=== PATIENT | female | born 1960 | race Caucasian/White ===

== ENCOUNTER 2019-04-20 14:53 | Emergency (ER) | payer OTHER ==
[2019-04-20] MEDS ORDERED: Sodium Chloride 0.9% 500 ML IV ONE (15:00)
--- NOTE | 2019-04-20 15:06 | EDM.PDOC ---
ED HPI GENERAL MEDICAL PROBLEM - General Chief Complaint: Chest Pain Stated Complaint: CHEST PAIN Time Seen by Provider: 04/20/19 14:53 Source of Information: Reports: Patient History Limitations: Reports: No Limitations - History of Present Illness INITIAL COMMENTS - FREE TEXT/NARRATIVE: 58 y.o.w.f came to the ED, transferred from , due to a possible fainting spell while taking a shower. Pt had breakfast before the shower. Pt stated, she had 4 fainting spells, after which she decided to come to the ED. Pt did not pass out. She has a H/O A fib, takes Metoprolol. ECG at the showed a NSR with T wave inversions at her ant leads, no change from 11/08/2018. No N/V/D no CP. No other acute med issues. BP 154/74 RR 18 Pulse ox 100% on RA Pulse 59 Temp 56.7 Onset Date: 04/20/19 Onset Time: 07:00 Duration: Intermittent Location: Reports: Chest Quality: Reports: Other (Fainting) Severity: Mild Improves with: Reports: Rest Worsens with: Reports: Movement Context: Reports: Other (taking a shower) Associated Symptoms: Reports: No Other Symptoms Chest Pain Score (Numeric/FACES): 2 - Related Data Allergies Allergy/AdvReac Type Severity Reaction Status Date / Time amoxicillin [Amoxicillin] Allergy Hives Verified 04/20/19 14:55 Home Meds: Home Meds Calcium Carbonate [Calcium] 600 mg PO DAILY 03/04/14 [History] Cholecalciferol (Vitamin D3) [Vitamin D] 1,000 unit PO DAILY 03/04/14 [History] Cyanocobalamin (Vitamin B12) [Vitamin B13] 500 mcg PO DAILY 03/04/14 [History] Flaxseed/Omega3,6,9/Fatty Acid [Flax Seed Oil 1,300 mg Softgel] 1 each PO DAILY 03/04/14 [History] Hydrocodone/Acetaminophen [Vicodin 5-300 mg Tablet] 1 - 2 tab PO Q6HR PRN #20 tablet 03/04/14 [Rx] Levothyroxine Sodium 1 tab PO DAILY 03/04/14 [History] Magnesium Amino Acid Chelate [Magnesium] 100 mg PO DAILY 03/04/14 [History] Multivitamin [One Daily Multivitamin] 1 each PO DAILY 03/04/14 [History] [place]-3 Fatty Acids/Fish Oil [Fish Oil Softgel] 1 each PO DAILY 03/04/14 [ History] Venlafaxine HCl [Venlafaxine ER] 1 tab PO DAILY 03/04/14 [History] ED ROS GENERAL - Review of Systems Review Of Systems: See Below Constitutional: Reports: No Symptoms HEENT: Reports: No Symptoms Respiratory: Reports: No Symptoms Cardiovascular: Reports: Lightheadedness, Syncope (near syncopy) Endocrine: Reports: No Symptoms GI/Abdominal: Reports: No Symptoms : Reports: No Symptoms Musculoskeletal: Reports: No Symptoms Skin: Reports: No Symptoms Neurological: Reports: No Symptoms Psychiatric: Reports: No Symptoms Hematologic/Lymphatic: Reports: No Symptoms Immunologic: Reports: No Symptoms ED EXAM, GENERAL - Physical Exam Exam: See Below Exam Limited By: No Limitations General Appearance: Alert, WD/WN, Mild Distress Eye Exam: Bilateral Eye: Normal Inspection Ears: Normal External Exam, Normal Canal Ear Exam: Bilateral Ear: Auricle Normal Nose: Normal Inspection, Normal Mucosa, No Blood Throat/Mouth: Normal Inspection, Normal Lips, Normal Voice, No Airway Compromise Head: Atraumatic, Normocephalic Neck: Normal Inspection, Supple, Non-Tender, Full Range of Motion Respiratory/Chest: No Respiratory Distress, Lungs Clear, Normal Breath Sounds, Chest Non-Tender Cardiovascular: Normal Peripheral Pulses, Regular Rate, Rhythm, No Edema, No Gallop, No JVD, No Murmur, No Rub, JVD GI/Abdominal: Normal Bowel Sounds, Soft, Non-Tender, No Organomegaly, No Mass, Pelvis Stable (Female) Exam: Deferred Rectal (Female) Exam: Deferred Back Exam: Normal Inspection, Full Range of Motion Extremities: Normal Inspection, Normal Range of Motion Neurological: Alert, Oriented, CN II-XII Intact, Normal Cognition, Normal Gait Psychiatric: Normal Affect, Normal Mood Skin Exam: Warm, Dry, Intact, Normal Color, No Rash Lymphatic: No Adenopathy EKG INTERPRETATION EKG Date: 04/20/19 Time: 14:30 Rhythm: NSR Rate (Beats/Min): 59 [place]: Normal P-Wave: Present QRS: Normal ST-T: Other (T wave inversion V1/V2 septal leads) QT: Normal Comparison: No Change (from 11/08/2018 ([place])) Course - Vital Signs Text/Narrative:: 58 y.o.w.f came to the ED, transferred from , due to a possible fainting spell while taking a shower. Pt had breakfast before the shower. Pt stated, she had 4 fainting spells, after which she decided to come to the ED. Pt did not pass out. She has a H/O A fib, takes Metoprolol. ECG at the showed a NSR with T wave inversions at her ant leads, no change from 11/08/2018. No N/V/D no CP. No other acute med issues. BP 154/74 RR 18 Pulse ox 100% on RA Pulse 59 Temp 56.7 PE: WNWD W F in NAD Labs: CBC, BMP, Troponin, D Dimer and TSH were all neg Impression: Postprandial near syncope, dehydration Tx: NS Reexam: Pt was doing fine in the ED, ambulating fine, requesting to be discharged. Plan: D/C with instructions Last Recorded V/S: Last Vital Signs Temp 36.5 C 04/20/19 14:53 Pulse 59 L 04/20/19 14:53 Resp 18 04/20/19 14:53 BP 154/74 H 04/20/19 14:53 Pulse Ox 100 04/20/19 14:53 - Orders/Labs/Meds Orders: Active Orders 24 hr Category Date Time Status Chest 1V Frontal [CR] Stat Exams 04/20/19 Taken Labs: Laboratory Tests 04/20/19 04/20/19 Range/Units 14:20 15:22 D-Dimer, Quantitative 0.45 (0.0-0.59) mg/LFEU TSH, Ultra Sensitive 1.71 (0.36-3.74) IU/mL Meds: Medications Discontinued Medications Generic Name Dose Route Start Last Admin Trade Name Freq PRN Reason Stop Dose Admin Sodium Chloride 500 mls @ 999 mls/hr 04/20/19 15:00 Normal Saline IV 04/20/19 15:30 .BOLUS ONE Departure - Departure Time of Disposition: 16:16 Disposition: Home, Self-Care 01 Condition: Good Clinical Impression: Vasovagal near-syncope, Dehydration Instructions: Near-Syncope, [id number], Dehydration, Adult, [id number] Referrals: Lindsay Mathis NP [Primary Care Provider] - Forms: ED Department Discharge Additional Instructions: Please cont your meds, please increase water intake, please f/u, come back if your symptoms get worse acutely. - My Orders Last 24 Hours: My Active Orders 04/20/19 Chest 1V Frontal [CR] Stat - Assessment/Plan Last 24 Hours: My Active Orders 04/20/19 Chest 1V Frontal [CR] Stat
== END 2019-04-20 16:45 | disposition home or self-care (01) ==
LOC: FB.ED 14:53
DX: E86.0 Dehydration (principal); R55 Syncope and collapse; Z88.1 Allergy status to other antibiotic agents; Z79.899 Other long term (current) drug therapy
CPT/HCPCS: 36415; 71045; 80048; 81001; 82550; 84443; 84484; 85025; 85379; 99284; J7040

== ENCOUNTER 2019-07-18 14:43 | Emergency (ER) | payer OTHER ==
[2019-07-18] MEDS ORDERED: Aspirin 81 MG Tab.Chew PO ONE (15:05)
[2019-07-18] MEDS ORDERED: Sodium Chloride 0.9% 10 ML Syringe FLUSH PRN (15:05)
--- NOTE | 2019-07-18 15:13 | EDM.PDOC ---
ED HPI GENERAL MEDICAL PROBLEM - General Chief Complaint: Chest Pain Stated Complaint: CHEST PAIN Time Seen by Provider: 07/18/19 14:55 Source of Information: Reports: Patient, EMS History Limitations: Reports: No Limitations - History of Present Illness INITIAL COMMENTS - FREE TEXT/NARRATIVE: pt states she was at home resting when she felt sudden onset of pressure in her chest , with diaphoresis, Noted palpitations and became pale from 1-130 pm left for work , when she got there still had palpitation and was taken by colleagues to [facility] : there the symptoms gradually subsided had an episode about 2 weeks ago at home that was brief and resolved on it own: then she was seen and asked to do a Holter monitor : did not do not has been on med initial episode she ended up in [place] and had symptoms resolved in 2018 in [facility] this year she had an episode was sent to [place], stayed over night , had EPS study that was not conclusive since then had not had any concerns till last 2 weeks Onset: Today Onset Date: 07/18/19 Onset Time: 13:00 Duration: Resolved Prior to Arrival Location: Reports: Chest (retrosternal pressure), Radiates to (nowhere) Quality: Reports: Ache, Pressure Severity: Moderate Improves with: Reports: Rest Worsens with: Reports: Other (activity), Movement Context: Reports: Activity Associated Symptoms: Reports: Chest Pain, Diaphoresis, Weakness, Other ( dizziness) Treatments HAND BANDER: Reports: Aspirin - Related Data Allergies Allergy/AdvReac Type Severity Reaction Status Date / Time amoxicillin [Amoxicillin] Allergy Hives Verified 04/20/19 14:55 Home Meds: Home Meds Levothyroxine 125 mcg PO DAILY 07/18/19 [History] Metoprolol Succinate [Toprol XL 100mg] 100 mg PO DAILY 07/18/19 [History] Rivaroxaban [Xarelto] 20 mg PO DAILY 07/18/19 [History] Venlafaxine [Effexor XR] 150 mg PO DAILY 07/18/19 [History] Past Medical History HEENT History: Reports: Hard of Hearing, Impaired Vision Cardiovascular History: Reports: Afib, Hypertension OCULARIST History: Reports: Other OCULARIST History: Musculoskeletal History: Reports: Fracture, Other (See Below) Other Musculoskeletal History: Left ankle Psychiatric History: Reports: Depression Endocrine/Metabolic History: Reports: Hypothyroidism, Obesity/BMI 30+ Oncologic (Cancer) History: Reports: Other (See Below) Other Oncologic History: watching skin issues - Past Surgical History GI Surgical History: Reports: Bariatric Procedure Other GI Surgeries/Procedures: 2012 gastric bypass Social & Family History - Family History Family Medical History: Noncontributory - Caffeine Use Caffeine Use: Reports: Soda ED ROS GENERAL - Review of Systems Review Of Systems: See Below Constitutional: Reports: Weakness, Fatigue, Diaphoresis HEENT: Reports: No Symptoms Respiratory: Reports: No Symptoms Cardiovascular: Reports: Lightheadedness, Other (chest pressure , has resolved , palpitations, resolved). Denies: Dyspnea on Exertion, Edema Endocrine: Reports: Fatigue GI/Abdominal: Reports: No Symptoms, Decreased Appetite : Reports: No Symptoms Musculoskeletal: Reports: No Symptoms Skin: Reports: No Symptoms Neurological: Reports: No Symptoms Psychiatric: Reports: No Symptoms Hematologic/Lymphatic: Reports: No Symptoms Immunologic: Reports: No Symptoms ED EXAM, GENERAL - Physical Exam Exam: See Below Free Text/Narrative:: pt arrived with no chest pain , no palpitations Exam Limited By: No Limitations General Appearance: Alert, WD/WN, No Apparent Distress Eye Exam: Bilateral Eye: EOMI Nose: Normal Inspection Throat/Mouth: Normal Inspection Head: Atraumatic, Normocephalic Neck: Normal Inspection, Supple, Non-Tender Respiratory/Chest: No Respiratory Distress, Lungs Clear, Normal Breath Sounds, Chest Non-Tender Cardiovascular: Normal Peripheral Pulses, Regular Rate, Rhythm Peripheral Pulses: 2+: Dorsalis Pedis (L), Dorsalis Pedis (R) GI/Abdominal: Soft, Non-Tender Back Exam: Full Range of Motion Extremities: Normal Range of Motion, No Pedal Edema Neurological: Alert, Oriented, CN II-XII Intact, No Motor/Sensory Deficits Psychiatric: Normal Affect, Normal Mood Course - Vital Signs Last Recorded V/S: Last Vital Signs Temp 36.8 C 07/18/19 14:45 Pulse 95 07/18/19 14:45 Resp 14 07/18/19 14:45 BP 129/94 H 07/18/19 14:45 Pulse Ox 99 07/18/19 14:45 - Orders/Labs/Meds Orders: Active Orders 24 hr Category Date Time Status Cardiac Monitoring [RC] .As Directed Care 07/18/19 15:06 Active EKG Documentation Completion [RC] ASDIRECTED Care 07/18/19 15:07 Active Influenza Vaccine Charge [RC] .DISCHARGE Care 07/18/19 15:12 Active Chest 1V Frontal [CR] Routine Exams 07/18/19 15:07 Taken UA W/MICROSCOPIC [URIN] Stat Lab 07/18/19 15:05 Ordered Lactated Ringers [Ringers, Lactated] 1,000 ml Med 07/18/19 15:15 Active IV .BOLUS Sodium Chloride 0.9% [Saline Flush] Med 07/18/19 15:05 Active 10 ml FLUSH ASDIRECTED PRN Peripheral IV Insertion Adult [OM.PC] Stat Oth 07/18/19 15:05 Ordered Saline Lock Insert [OM.PC] Stat Oth 07/18/19 15:05 Ordered EKG 12 Lead [EK] Stat Ther 07/18/19 15:07 Ordered Medication Orders Lactated Ringer's (Ringers, Lactated) 1,000 mls @ 999 mls/hr IV .BOLUS DARRON Last Admin: 07/18/19 15:31 Dose: 999 mls/hr Sodium Chloride (Saline Flush) 10 ml FLUSH ASDIRECTED PRN PRN Reason: Keep Vein Open Labs: Laboratory Tests 07/18/19 07/18/19 07/18/19 Range/Units 15:20 15:20 15:20 WBC 8.1 (4.5-12.0) X10-3/uL RBC 4.35 (3.23-5.20) x10(6)uL Hgb 12.9 (11.5-15.5) g/dL Hct 39.0 (30.0-51.3) % MCV 89.6 (80-96) fL MCH 29.6 (27.7-33.6) pg MCHC 33.0 (32.2-35.4) g/dL RDW 13.4 (11.5-15.5) % Plt Count 208 (125-369) X10(3)uL MPV 8.3 (7.4-10.4) fL Neut % (Auto) 66.1 (46-82) % Lymph % (Auto) 26.1 (13-37) % [place] % (Auto) 6.3 (4-12) % Eos % (Auto) 1 (1.0-5.0) % Baso % (Auto) 1 (0-2) % Neut # (Auto) 5.4 (1.6-8.3) # Lymph # (Auto) 2.1 (0.6-5.0) # [place] # (Auto) 0.5 (0.0-1.3) # Eos # (Auto) 0.1 (0.0-0.8) # Baso # (Auto) 0.0 (0.0-0.2) # PT 10.5 (8.7-11.1) INR 1.08 (0.89-1.13) D-Dimer, Quantitative 0.28 (0.0-0.59) mg/LFEU Sodium 142 (135-145) mmol/L Potassium 4.0 (3.5-5.3) mmol/L Chloride 104 (100-110) mmol/L Carbon Dioxide 28 (21-32) mmol/L BUN 14 (7-18) mg/dL Creatinine 0.7 (0.55-1.02) mg/dL Est Cr Clr Drug Dosing 76.90 mL/min Estimated GFR (MDRD) > 60 (>60) BUN/Creatinine Ratio 20.0 (9-20) Glucose 104 (80-116) mg/dL Calcium 8.8 (8.6-10.2) mg/dL Phosphorus 3.7 (2.6-4.6) mg/dL Magnesium 1.7 L (1.8-2.5) mg/dL Troponin I (<0.017-0.056) ng/mL NT-Pro-B Natriuret Pep (<=125) pg/mL 07/18/19 Range/Units 15:20 WBC (4.5-12.0) X10-3/uL RBC (3.23-5.20) x10(6)uL Hgb (11.5-15.5) g/dL Hct (30.0-51.3) % MCV (80-96) fL MCH (27.7-33.6) pg MCHC (32.2-35.4) g/dL RDW (11.5-15.5) % Plt Count (125-369) X10(3)uL MPV (7.4-10.4) fL Neut % (Auto) (46-82) % Lymph % (Auto) (13-37) % [place] % (Auto) (4-12) % Eos % (Auto) (1.0-5.0) % Baso % (Auto) (0-2) % Neut # (Auto) (1.6-8.3) # Lymph # (Auto) (0.6-5.0) # [place] # (Auto) (0.0-1.3) # Eos # (Auto) (0.0-0.8) # Baso # (Auto) (0.0-0.2) # PT (8.7-11.1) INR (0.89-1.13) D-Dimer, Quantitative (0.0-0.59) mg/LFEU Sodium (135-145) mmol/L Potassium (3.5-5.3) mmol/L Chloride (100-110) mmol/L Carbon Dioxide (21-32) mmol/L BUN (7-18) mg/dL Creatinine (0.55-1.02) mg/dL Est Cr Clr Drug Dosing mL/min Estimated GFR (MDRD) (>60) BUN/Creatinine Ratio (9-20) Glucose (80-116) mg/dL Calcium (8.6-10.2) mg/dL Phosphorus (2.6-4.6) mg/dL Magnesium (1.8-2.5) mg/dL Troponin I < 0.017 L (<0.017-0.056) ng/mL NT-Pro-B Natriuret Pep 70 (<=125) pg/mL Meds: Medications Generic Name Dose Route Start Last Admin Trade Name Freq PRN Reason Stop Dose Admin Lactated Ringer's 1,000 mls @ 999 mls/hr 07/18/19 15:15 07/18/19 15:31 Ringers, Lactated IV 999 mls/hr .BOLUS DARRON Administration Sodium Chloride 10 ml 07/18/19 15:05 Saline Flush FLUSH ASDIRECTED PRN Keep Vein Open Discontinued Medications Generic Name Dose Route Start Last Admin Trade Name Freq PRN Reason Stop Dose Admin Aspirin 324 mg 07/18/19 15:05 07/18/19 15:00 Aspirin PO 07/18/19 15:06 324 mg ONETIME ONE Administration Influenza Virus Vaccine 60 mcg 07/18/19 16:00 Fluzone Quad Syringe IM 07/18/19 16:01 .ONCE ONE Departure - Departure Time of Disposition: 16:10 Disposition: Home, Self-Care 01 Clinical Impression: Paroxysmal supraventricular tachycardia, Atypical chest pain Instructions: Supraventricular Tachycardia, Adult Referrals: Lindsay Mathis NP [Primary Care Provider] - Forms: ED Department Discharge Additional Instructions: continue with current medications Make appt to see your PCP You need to set up appt for Holter Monitor placement as ordered You will need to Follow up with your iron caster - Problem List & Annotations (1) Palpitations SNOMED Code(s): 26451824 Code(s): R00.2 - PALPITATIONS Status: Acute Current Visit: Yes (2) Paroxysmal supraventricular tachycardia SNOMED Code(s): 26453340 Code(s): I47.1 - SUPRAVENTRICULAR TACHYCARDIA Status: Acute Current Visit : Yes - Problem List Review Problem List Initiated/Reviewed/Updated: Yes - My Orders Last 24 Hours: My Active Orders 07/18/19 15:05 UA W/MICROSCOPIC [URIN] Stat Sodium Chloride 0.9% [Saline Flush] 10 ml FLUSH ASDIRECTED PRN Peripheral IV Insertion Adult [OM.PC] Stat Saline Lock Insert [OM.PC] Stat 07/18/19 15:06 Cardiac Monitoring [RC] .As Directed 07/18/19 15:07 EKG Documentation Completion [RC] ASDIRECTED Chest 1V Frontal [CR] Routine EKG 12 Lead [EK] Stat 07/18/19 15:12 Influenza Vaccine Charge [RC] .DISCHARGE 07/18/19 15:15 Lactated Ringers [Ringers, Lactated] 1,000 ml IV .BOLUS - Assessment/Plan Last 24 Hours: My Active Orders 07/18/19 15:05 UA W/MICROSCOPIC [URIN] Stat Sodium Chloride 0.9% [Saline Flush] 10 ml FLUSH ASDIRECTED PRN Peripheral IV Insertion Adult [OM.PC] Stat Saline Lock Insert [OM.PC] Stat 07/18/19 15:06 Cardiac Monitoring [RC] .As Directed 07/18/19 15:07 EKG Documentation Completion [RC] ASDIRECTED Chest 1V Frontal [CR] Routine EKG 12 Lead [EK] Stat 07/18/19 15:12 Influenza Vaccine Charge [RC] .DISCHARGE 07/18/19 15:15 Lactated Ringers [Ringers, Lactated] 1,000 ml IV .BOLUS
[2019-07-18] MEDS ORDERED: Lactated Ringers 1,000 ML IV SCH (15:15)
[2019-07-18] MEDS ORDERED: FLU Vacc QS2019-20(6MOS+)/PF 60 MCG/0.5 ML SYRINGE IM ONE (16:00)
--- NOTE | 2019-07-19 09:06 | CR ---
INDICATION: Chest pain. CHEST: An AP upright portable view of the chest, 07/18/19, was compared with and again revealed evidence of exogenous obesity. The heart did not appear enlarged. The aorta is slightly tortuous. Overlying EKG leads are noted. A definite active infiltrate or effusion was not identified. IMPRESSION: 1. No acute process. 2. Exogenous obesity. MTDD
== END 2019-07-18 16:32 | disposition home or self-care (01) ==
LOC: FB.ED 14:43
DX: I47.1 Supraventricular tachycardia (principal); I10 Essential (primary) hypertension; E03.9 Hypothyroidism, unspecified; Z79.01 Long term (current) use of anticoagulants; Z79.899 Other long term (current) drug therapy; Z88.0 Allergy status to penicillin
CPT/HCPCS: 36415; 71045; 80048; 81001; 83735; 83880; 84100; 84484; 85025; 85379; 85610; 93005; 96360; 99285; A9270; J7120

== ENCOUNTER 2023-07-19 06:36 | Day surgery (SDC) | payer OTHER ==
[~2023-07-19 06:36] MED LIST: Sodium Chloride 0.9% 10 ML Syringe FLUSH PRN
[2023-07-19] MEDS ORDERED: Glycopyrrolate 0.2 MG/ML 5 ML MDV IV ONE (06:37)
[2023-07-19] MEDS ORDERED: Propofol 200 MG/20 ML SDV IV ONE (06:37)
[2023-07-19] MEDS ORDERED: Midazolam 1 MG/ML 2 ML SDV IV ONE (06:37)
[2023-07-19] MEDS: Lactated Ringers 1,000 ML IV SCH (07:12)
[2023-07-19] MEDS: Simethicone Drops 40 MG/0.6 ML 30 ML Bottle PO ONE (07:31)
== END 2023-07-19 09:02 | disposition home or self-care (01) ==
LOC: FB.SDS 06:36
PROVIDERS: ATTEND Surgery
DX: Z12.11 Encounter for screening for malignant neoplasm of colon (principal); D12.2 Benign neoplasm of ascending colon; K63.5 Polyp of colon; I48.0 Paroxysmal atrial fibrillation; F32.A Depression, unspecified; E78.5 Hyperlipidemia, unspecified; G47.33 Obstructive sleep apnea (adult) (pediatric); E03.9 Hypothyroidism, unspecified; Z88.0 Allergy status to penicillin; Z88.1 Allergy status to other antibiotic agents; Z79.01 Long term (current) use of anticoagulants; Z79.899 Other long term (current) drug therapy; Z88.8 Allergy status to other drugs, medicaments and biological substances
CPT/HCPCS: 00811; 88305; A9270-GY; J2250; J2704; J3490; J7120